=== PATIENT | male | born 1960 | race Two or more races ===

== ENCOUNTER 2021-03-05 00:25 | Inpatient (IN) | payer MEDICAID, OTHER ==
[~2021-03-05] VITALS: Ht 165.1 cm; Wt 66.6 kg
[2021-03-05 02:04] LABS: Basophils # (auto) 0 10 ^3/uL (0-0.2); Basophils % (auto) 0.8 % (0.0-2.0); Eosinophils # (auto) 0.1 10 ^3/uL (0-0.8); Lymphocytes # (auto) 0.6 10 ^3/uL (0.4-5.4); Monocytes # (auto) 0.5 10 ^3/uL (0-1.3); Neutrophils # (auto) 3.9 10 ^3/uL (1.6-8.6); Red Cell Distribution Width 14.1 % (11.8-14.3); White Blood Cell 5.2 10^3/uL (4.4-10.8)
[2021-03-05 02:05] LABS: Eosinophils % (auto) 2.7 % (0.0-7.0); Hematocrit 23.1 % (41.0-53.0); Hemoglobin 7.8 g/dL (13.5-17.5); Lymphocytes % (auto) 12.1 % (10.0-50.0); Mean Corpuscular Hemoglobin 32.8 pg (28.0-32.0); Mean Corpuscular Hgb Conc. 33.6 g/dL (32.0-36.0); Mean Corpuscular Volume 97.5 fL (80.0-100.0); Monocytes % (auto) 9.9 % (0.0-12.0); Neutrophils % (auto) 74.5 % (37.0-80.0); Red Blood Cells 2.37 10^6/uL (4.5-5.90)
[2021-03-05 03:02] LABS: Albumin 3.6 g/dL (3.4-5.0); BUN/Creatinine Ratio 5.8; Calcium 8.2 mg/dL (8.5-10.1); Potassium 4.3 mmol/L (3.5-5.1)
[2021-03-05 03:05] LABS: Bilirubin, Total 0.5 mg/dL (0.2-1.0); Total Protein 7.3 g/dL (6.4-8.2)
[2021-03-05] MEDS ORDERED: hydrALAZINE HCL 10 MG TAB PO ONE (05:15)
[2021-03-05] MEDS ORDERED: DEXTROSE 50% SYRINGE 50 ML IV ONE (06:05)
[2021-03-05] MEDS ORDERED: D5W 5% 1,000 ML IV ONE (06:15)
[2021-03-05] MEDS ORDERED: DEXTROSE (50%) 50ML SYRG IV ONE ×3 (06:15→07:00)
[2021-03-05] MEDS ORDERED: ACCU-CHEK COMFORT CURVE STRIP VI ONE (06:45)
[2021-03-05] MEDS ORDERED: MORPHINE SULF INJ 2 MG/ML SYRINGE 1ML IV PRN (07:00)
[2021-03-05] MEDS ORDERED: HYDROcodone-ACET 5/325MG TAB PO PRN (07:00)
[2021-03-05] MEDS ORDERED: hydrALAZINE HCL 20 MG/ML VL IV PRN (07:00)
[2021-03-05] MEDS ORDERED: ONDANSETRON HCL 4 MG/2 ML VIAL IV PRN (07:00)
[2021-03-05] MEDS ORDERED: ACETAMINOPHEN 325 MG TAB PO PRN (07:00)
[2021-03-05] MEDS ORDERED: DOCUSATE SOD 100 MG CAP PO PRN (07:00)
[2021-03-05] MEDS ORDERED: NITROGLYCERIN 0.4 MG SL TAB SL PRN (07:00)
[2021-03-05] MEDS ORDERED: DEXTROSE (50%) 50ML SYRG IV PRN (07:00)
[2021-03-05] MEDS: ACCU-CHEK COMFORT CURVE STRIP VI SCH ×4 (07:00→23:08)
[2021-03-05] MEDS: InsuLIN REG 1unit/0.01ml Soln (100units/ml) SC SCH ×4 (07:00→22:00)
[2021-03-05] MEDS: SEVELAMER 800 MG TAB PO SCH ×3 (08:11→18:00)
[2021-03-05 08:36] LABS: Basophils # (auto) 0 10 ^3/uL (0-0.2); Basophils % (auto) 0.9 % (0.0-2.0); Eosinophils # (auto) 0.1 10 ^3/uL (0-0.8); Hemoglobin 8.2 g/dL (13.5-17.5); Lymphocytes # (auto) 0.6 10 ^3/uL (0.4-5.4); Monocytes # (auto) 0.4 10 ^3/uL (0-1.3); Monocytes % (auto) 8.3 % (0.0-12.0); Neutrophils # (auto) 3.6 10 ^3/uL (1.6-8.6)
[2021-03-05 08:38] LABS: Hematocrit 24.7 % (41.0-53.0); Lymphocytes % (auto) 13.4 % (10.0-50.0); Mean Corpuscular Hemoglobin 32.6 pg (28.0-32.0); Mean Corpuscular Hgb Conc. 33.3 g/dL (32.0-36.0); Mean Corpuscular Volume 97.9 fL (80.0-100.0); Neutrophils % (auto) 75.4 % (37.0-80.0); Red Blood Cells 2.53 10^6/uL (4.5-5.90); Red Cell Distribution Width 14.2 % (11.8-14.3); White Blood Cell 4.8 10^3/uL (4.4-10.8)
[2021-03-05 09:00] LABS: Albumin 3.1 g/dL (3.4-5.0); Potassium 5.1 mmol/L (3.5-5.1)
[2021-03-05 09:05] LABS: BUN/Creatinine Ratio 6.2; Bilirubin, Total 0.5 mg/dL (0.2-1.0); Total Protein 7.2 g/dL (6.4-8.2)
[2021-03-05] MEDS ORDERED: B-COTAB10 PO (10:30)
[2021-03-05] MEDS ORDERED: SIMV-13 PO (10:30)
[2021-03-05] MEDS ORDERED: SEVE800T PO (10:30)
[2021-03-05] MEDS ORDERED: INSU70IN3 SC (10:30)
[2021-03-05] MEDS ORDERED: AMLO-489 PO (10:30)
[2021-03-05] MEDS: ZINC SULFATE 220mg CAP or TAB PO SCH (10:31)
[2021-03-05] MEDS: amLODIPine BESYLATE 5 MG TAB PO SCH (10:32)
[2021-03-05] MEDS: ASCORBIC ACID 500 MG TAB PO SCH ×2 (10:33→23:08)
[2021-03-05] MEDS: B-COMPLEX W/ C & FOLIC ACID(NEPHROVITE TAB) PO SCH (11:03)
[2021-03-05] MEDS: SODIUM CHLOR 0.9% PF (SALINE LOCK) 10ML VIAL/SYR IV SCH ×2 (14:20→23:08)
[2021-03-05 22:20] VITALS: BP 132/69
[2021-03-06 05:00] VITALS: BP 147/80
[2021-03-06] MEDS: SODIUM CHLOR 0.9% PF (SALINE LOCK) 10ML VIAL/SYR IV SCH ×3 (05:43→21:24)
[2021-03-06 05:50] LABS: Basophils # (auto) 0 10 ^3/uL (0-0.2); Eosinophils # (auto) 0.2 10 ^3/uL (0-0.8); Hemoglobin 7.8 g/dL (13.5-17.5); Monocytes # (auto) 0.4 10 ^3/uL (0-1.3); Red Cell Distribution Width 13.9 % (11.8-14.3)
[2021-03-06 05:51] LABS: BUN/Creatinine Ratio 6.1; Calcium 7.3 mg/dL (8.5-10.1); Eosinophils % (auto) 3.2 % (0.0-7.0); Hematocrit 22.8 % (41.0-53.0); Lymphocytes % (auto) 20.1 % (10.0-50.0); Mean Corpuscular Hemoglobin 33.3 pg (28.0-32.0); Mean Corpuscular Hgb Conc. 34.3 g/dL (32.0-36.0); Mean Corpuscular Volume 96.9 fL (80.0-100.0); Monocytes % (auto) 8.5 % (0.0-12.0); Neutrophils # (auto) 3.4 10 ^3/uL (1.6-8.6); Neutrophils % (auto) 67.2 % (37.0-80.0); Red Blood Cells 2.35 10^6/uL (4.5-5.90)
[2021-03-06 06:11] LABS: Bilirubin, Total 0.4 mg/dL (0.2-1.0); Total Protein 6.2 g/dL (6.4-8.2)
[2021-03-06 06:39] LABS: Potassium 6.2 mmol/L (3.5-5.1)
[2021-03-06] MEDS: ACCU-CHEK COMFORT CURVE STRIP VI SCH ×4 (06:54→21:24)
[2021-03-06] MEDS: InsuLIN REG 1unit/0.01ml Soln (100units/ml) SC SCH ×4 (06:55→21:56)
[2021-03-06] MEDS: SEVELAMER 800 MG TAB PO SCH ×3 (08:00→17:27)
[2021-03-06 09:00] VITALS: BP 148/68
[2021-03-06] MEDS: ZINC SULFATE 220mg CAP or TAB PO SCH (09:10)
[2021-03-06] MEDS: ASCORBIC ACID 500 MG TAB PO SCH ×2 (09:10→21:24)
[2021-03-06] MEDS: amLODIPine BESYLATE 5 MG TAB PO SCH (09:10)
[2021-03-06] MEDS: B-COMPLEX W/ C & FOLIC ACID(NEPHROVITE TAB) PO SCH (09:10)
[2021-03-06] MEDS ORDERED: SODIUM ZIRCONIUM CYCL 10 GM PAK PO ONE (12:00)
[2021-03-06] MEDS ORDERED: SODIUM CHL 0.9% 1000 ML BAG XX ONE (12:30)
[2021-03-06 12:46] VITALS: BP 146/79
[2021-03-06 17:00] VITALS: BP_SYST 119; BP_SYST 137; BP_DIAS 63; BP_DIAS 64
[2021-03-06] MEDS ORDERED: EPOETIN ALFA-EPBX 10,000 UNIT/1ML VIAL SC ONE (21:00)
[2021-03-06 22:00] VITALS: BP 132/66
[2021-03-07 05:00] VITALS: BP 154/77
[2021-03-07 05:44] LABS: BUN/Creatinine Ratio 5.3; Calcium 7.2 mg/dL (8.5-10.1); Potassium 4.7 mmol/L (3.5-5.1)
[2021-03-07] MEDS: ACCU-CHEK COMFORT CURVE STRIP VI SCH (06:21)
[2021-03-07] MEDS: SODIUM CHLOR 0.9% PF (SALINE LOCK) 10ML VIAL/SYR IV SCH (06:21)
[2021-03-07] MEDS: InsuLIN REG 1unit/0.01ml Soln (100units/ml) SC SCH (06:26)
[2021-03-07 09:01] VITALS: BP 129/69
[2021-03-07] MEDS: ASCORBIC ACID 500 MG TAB PO SCH (10:19)
[2021-03-07] MEDS: ZINC SULFATE 220mg CAP or TAB PO SCH (10:19)
[2021-03-07] MEDS: SEVELAMER 800 MG TAB PO SCH (10:19)
[2021-03-07] MEDS: amLODIPine BESYLATE 5 MG TAB PO SCH (10:19)
[2021-03-07] MEDS: B-COMPLEX W/ C & FOLIC ACID(NEPHROVITE TAB) PO SCH (10:19)
[2021-03-07 12:02] VITALS: BP 129/69
[2021-03-07 13:00] VITALS: BP 155/75
== END 2021-03-07 13:00 | disposition home or self-care (01) | DRG 812 ==
LOC: EDBD 00:25 → ER 00:39 → TELE 06:59 → TELE-CENTR 22:20
PROVIDERS: ADMIT Nurse Practitioner Family; ATTEND Internal Medicine
PROC: 5A1D70Z Performance of Urinary Filtration, Intermittent, Less than 6 Hours Per Day (ICD-10-PCS; principal; 2021-03-06)
DX: T38.3X1A Poisoning by insulin and oral hypoglycemic [antidiabetic] drugs, accidental (unintentional), initial encounter (principal); G93.41 Metabolic encephalopathy; E11.22 Type 2 diabetes mellitus with diabetic chronic kidney disease; E11.649 Type 2 diabetes mellitus with hypoglycemia without coma; N18.6 End stage renal disease; Z20.822 Contact with and (suspected) exposure to COVID-19; D63.1 Anemia in chronic kidney disease; E78.5 Hyperlipidemia, unspecified; E87.5 Hyperkalemia; I12.0 Hypertensive chronic kidney disease with stage 5 chronic kidney disease or end stage renal disease; Z99.2 Dependence on renal dialysis; Z83.3 Family history of diabetes mellitus; Z79.899 Other long term (current) drug therapy; Y92.89 Other specified places as the place of occurrence of the external cause
CPT/HCPCS: 36415; 80048; 80053; 80061; 82962; 83036; 85025; 87426; 90935; 93005; 96374; G0378; J1642; J1815

== ENCOUNTER 2021-03-19 19:16 | Inpatient (IN) | payer MEDICAID ==
[~2021-03-19] VITALS: Ht 152.4 cm; Wt 71.5 kg
[~2021-03-19 19:16] MED LIST: AMLO-489 PO; B-COTAB10 PO; INSU70IN3 SC; SEVE800T PO; SIMV-13 PO
[2021-03-19 21:14] LABS: Basophils # (auto) 0.1 10 ^3/uL (0-0.2); Eosinophils # (auto) 0.2 10 ^3/uL (0-0.8); Hematocrit 28.2 % (41.0-53.0); Hemoglobin 9.3 g/dL (13.5-17.5); Lymphocytes # (auto) 0.8 10 ^3/uL (0.4-5.4); Lymphocytes % (auto) 14.7 % (10.0-50.0); Mean Corpuscular Hemoglobin 32.4 pg (28.0-32.0); Mean Corpuscular Hgb Conc. 32.8 g/dL (32.0-36.0); Mean Corpuscular Volume 98.7 fL (80.0-100.0); Monocytes # (auto) 0.4 10 ^3/uL (0-1.3); Monocytes % (auto) 7.1 % (0.0-12.0); Neutrophils # (auto) 3.9 10 ^3/uL (1.6-8.6); Neutrophils % (auto) 74.2 % (37.0-80.0); Nucleated Red Blood Cells % 0.1 %; Red Blood Cells 2.86 10^6/uL (4.5-5.90); Red Cell Distribution Width 13.8 % (11.8-14.3); White Blood Cell 5.3 10^3/uL (4.4-10.8)
[2021-03-19 21:32] LABS: Albumin 3.5 g/dL (3.4-5.0); Anion Gap 12 (5-15); BUN/Creatinine Ratio 6.1; Calcium 8.3 mg/dL (8.5-10.1); Carbon Dioxide 20 mmol/L (21-32); Chloride 106 mmol/L (98-107); GFR African American 5 mL/min; GFR Non-African American 4 mL/min; Glucose 67 mg/dL (74-106); Magnesium 3.5 mg/dL (1.6-2.6); Sodium 138 mmol/L (136-145)
[2021-03-19 21:38] LABS: Alanine Aminotransferase 61 U/L (16-61); Alkaline Phosphatase 109 U/L (45-117); Aspartate Aminotransferase 33 U/L (15-37); Bilirubin, Total 0.4 mg/dL (0.2-1.0); Total Protein 7.8 g/dL (6.4-8.2)
[2021-03-19 21:45] LABS: Potassium 6.2 mmol/L (3.5-5.1)
[2021-03-19 21:46] LABS: Blood Urea Nitrogen 86 mg/dL (7-18)
[2021-03-20] MEDS ORDERED: ACETAMINOPHEN 325 MG TAB PO PRN (00:45)
[2021-03-20] MEDS ORDERED: SODIUM BICARBONATE 8.4% INJ 50ML SYRINGE IV ONE (00:45)
[2021-03-20] MEDS ORDERED: DEXTROSE (50%) 50ML SYRG IV PRN (00:45)
[2021-03-20] MEDS ORDERED: HYDROcodone-ACET 5/325MG TAB PO PRN (00:45)
[2021-03-20] MEDS ORDERED: NITROGLYCERIN 0.4 MG SL TAB SL PRN (00:45)
[2021-03-20] MEDS ORDERED: DOCUSATE SOD 100 MG CAP PO PRN (00:45)
[2021-03-20] MEDS ORDERED: SODIUM ZIRCONIUM CYCL 10 GM PAK PO ONE (00:45)
[2021-03-20] MEDS ORDERED: MORPHINE SULFATE INJECTION 2 MG/ML SYRG IV PRN (00:45)
[2021-03-20] MEDS ORDERED: ONDANSETRON HCL 4 MG/2 ML VIAL IV PRN (00:45)
[2021-03-20] MEDS: InsuLIN REG 1unit/0.01ml Soln (100units/ml) SC SCH ×6 (04:00→23:50)
[2021-03-20] MEDS: ACCU-CHEK COMFORT CURVE STRIP VI SCH ×6 (04:00→23:51)
[2021-03-20] MEDS: SODIUM CHLOR 0.9% PF (SALINE LOCK) 10ML VIAL/SYR IV SCH ×3 (05:44→21:50)
[2021-03-20 05:57] LABS: Basophils # (auto) 0.1 10 ^3/uL (0-0.2); Basophils % (auto) 1.6 % (0.0-2.0); Eosinophils # (auto) 0.2 10 ^3/uL (0-0.8); Hemoglobin 8.1 g/dL (13.5-17.5); Monocytes # (auto) 0.3 10 ^3/uL (0-1.3); Neutrophils # (auto) 2.6 10 ^3/uL (1.6-8.6)
[2021-03-20 06:01] LABS: Eosinophils % (auto) 4.6 % (0.0-7.0); Hematocrit 23.6 % (41.0-53.0); Mean Corpuscular Hemoglobin 33.4 pg (28.0-32.0); Mean Corpuscular Hgb Conc. 34.5 g/dL (32.0-36.0); Mean Corpuscular Volume 96.9 fL (80.0-100.0); Monocytes % (auto) 6.8 % (0.0-12.0); Nucleated Red Blood Cells % 0.1 %; Red Blood Cells 2.44 10^6/uL (4.5-5.90); Red Cell Distribution Width 13.8 % (11.8-14.3); White Blood Cell 4.2 10^3/uL (4.4-10.8)
[2021-03-20 06:20] LABS: Albumin 2.9 g/dL (3.4-5.0); Calcium 7.9 mg/dL (8.5-10.1)
[2021-03-20 06:26] LABS: BUN/Creatinine Ratio 6.8; Bilirubin, Total 0.3 mg/dL (0.2-1.0); Magnesium 3.6 mg/dL (1.6-2.6); Total Protein 6.6 g/dL (6.4-8.2)
[2021-03-20 07:07] LABS: Potassium 7.2 mmol/L (3.5-5.1)
[2021-03-20] MEDS: SEVELAMER 800 MG TAB PO SCH ×3 (08:35→18:19)
[2021-03-20] MEDS: ZINC SULFATE 220mg CAP or TAB PO SCH (10:12)
[2021-03-20] MEDS: FAMOTIDINE (10MG/ML) 2ML VL IV SCH (10:12)
[2021-03-20] MEDS: ASCORBIC ACID 500 MG TAB PO SCH ×2 (10:13→21:51)
[2021-03-20] MEDS: B-COMPLEX W/ C & FOLIC ACID(NEPHROVITE TAB) PO SCH (10:13)
[2021-03-20] MEDS: HEPARIN SODIUM (PORCINE) 5000 UNITS/ML 1ML VIAL SC SCH ×2 (10:15→21:52)
[2021-03-20] MEDS ORDERED: SODIUM ZIRCONIUM CYCL 10 GM PAK PO STA (13:14)
[2021-03-20] MEDS ORDERED: SODIUM CHL 0.9% 1000 ML BAG XX ONE (13:30)
[2021-03-20] MEDS: hydrALAZINE HCL 20 MG/ML VL IV PRN (21:52)
[2021-03-21] VITALS (7 sets, daily range): BP systolic 149–195; BP diastolic 72–91
[2021-03-21] MEDS: ACCU-CHEK COMFORT CURVE STRIP VI SCH ×6 (04:00→23:23)
[2021-03-21] MEDS: InsuLIN REG 1unit/0.01ml Soln (100units/ml) SC SCH ×6 (04:00→23:27)
[2021-03-21 05:37] LABS: Basophils # (auto) 0.1 10 ^3/uL (0-0.2); Basophils % (auto) 1.6 % (0.0-2.0); Eosinophils # (auto) 0.2 10 ^3/uL (0-0.8); Hemoglobin 8.2 g/dL (13.5-17.5); Monocytes # (auto) 0.3 10 ^3/uL (0-1.3); Neutrophils # (auto) 2.1 10 ^3/uL (1.6-8.6)
[2021-03-21 05:38] LABS: Eosinophils % (auto) 5.7 % (0.0-7.0); Hematocrit 24.4 % (41.0-53.0); Lymphocytes # (auto) 1.1 10 ^3/uL (0.4-5.4); Lymphocytes % (auto) 28.9 % (10.0-50.0); Mean Corpuscular Hemoglobin 32.6 pg (28.0-32.0); Mean Corpuscular Hgb Conc. 33.6 g/dL (32.0-36.0); Mean Corpuscular Volume 96.8 fL (80.0-100.0); Monocytes % (auto) 7.7 % (0.0-12.0); Neutrophils % (auto) 56.1 % (37.0-80.0); Red Blood Cells 2.52 10^6/uL (4.5-5.90); Red Cell Distribution Width 14.1 % (11.8-14.3); White Blood Cell 3.8 10^3/uL (4.4-10.8)
[2021-03-21 05:48] LABS: Calcium 7.5 mg/dL (8.5-10.1)
[2021-03-21 05:54] LABS: Albumin 2.7 g/dL (3.4-5.0); BUN/Creatinine Ratio 5.8; Bilirubin, Total 0.4 mg/dL (0.2-1.0); Total Protein 6.5 g/dL (6.4-8.2)
[2021-03-21] MEDS: SODIUM CHLOR 0.9% PF (SALINE LOCK) 10ML VIAL/SYR IV SCH ×3 (06:17→20:59)
[2021-03-21 06:34] LABS: Potassium 5.8 mmol/L (3.5-5.1)
[2021-03-21] MEDS ORDERED: SODIUM CHL 0.9% 1000 ML BAG XX ONE (07:00)
[2021-03-21] MEDS: SEVELAMER 800 MG TAB PO SCH ×3 (08:35→18:44)
[2021-03-21] MEDS: ZINC SULFATE 220mg CAP or TAB PO SCH (08:36)
[2021-03-21] MEDS: ASCORBIC ACID 500 MG TAB PO SCH ×2 (08:37→20:59)
[2021-03-21] MEDS: B-COMPLEX W/ C & FOLIC ACID(NEPHROVITE TAB) PO SCH (08:37)
[2021-03-21] MEDS: HEPARIN SODIUM (PORCINE) 5000 UNITS/ML 1ML VIAL SC SCH ×2 (09:53→23:23)
[2021-03-21] MEDS: NIFEdipine ER 30 MG TAB PO SCH (09:54)
[2021-03-21] MEDS ORDERED: amLODIPine BESYLATE 5 MG TAB PO SCH (10:00)
[2021-03-21] MEDS ORDERED: SODIUM ZIRCONIUM CYCL 10 GM PAK PO ONE (14:45)
[2021-03-21] MEDS ORDERED: EPOETIN ALFA-EPBX 4,000 UNIT/ML VIAL SC ONE (21:00)
[2021-03-21] MEDS: hydrALAZINE HCL 20 MG/ML VL IV PRN (21:09)
[2021-03-21] MEDS: SODIUM ZIRCONIUM CYCL 10 GM PAK PO SCH (23:23)
[2021-03-22] MEDS: ACCU-CHEK COMFORT CURVE STRIP VI SCH ×5 (04:00→20:00)
[2021-03-22] MEDS: InsuLIN REG 1unit/0.01ml Soln (100units/ml) SC SCH ×5 (04:00→20:59)
[2021-03-22 05:00] VITALS: BP 145/67
[2021-03-22] MEDS: SODIUM CHLOR 0.9% PF (SALINE LOCK) 10ML VIAL/SYR IV SCH ×3 (06:00→22:56)
[2021-03-22] MEDS: SODIUM ZIRCONIUM CYCL 10 GM PAK PO SCH ×2 (06:00→14:00)
[2021-03-22 06:24] LABS: Hemoglobin 8.1 g/dL (13.5-17.5)
[2021-03-22 06:27] LABS: Hematocrit 24.2 % (41.0-53.0)
[2021-03-22 06:34] LABS: Calcium 7.4 mg/dL (8.5-10.1)
[2021-03-22 06:39] LABS: BUN/Creatinine Ratio 6.1
[2021-03-22] MEDS: SEVELAMER 800 MG TAB PO SCH ×3 (08:11→17:41)
[2021-03-22 08:40] LABS: Potassium 6.2 mmol/L (3.5-5.1)
[2021-03-22 09:00] VITALS: BP 158/71
[2021-03-22] MEDS: ASCORBIC ACID 500 MG TAB PO SCH ×2 (10:00→22:55)
[2021-03-22] MEDS: B-COMPLEX W/ C & FOLIC ACID(NEPHROVITE TAB) PO SCH (10:00)
[2021-03-22] MEDS: ZINC SULFATE 220mg CAP or TAB PO SCH (10:00)
[2021-03-22] MEDS: HEPARIN SODIUM (PORCINE) 5000 UNITS/ML 1ML VIAL SC SCH ×2 (10:00→22:56)
[2021-03-22] MEDS: FAMOTIDINE (10MG/ML) 2ML VL IV SCH (10:00)
[2021-03-22] MEDS: NIFEdipine ER 30 MG TAB PO SCH (10:00)
[2021-03-22 12:41] VITALS: BP 113/63
[2021-03-22 17:00] VITALS: BP 170/76
[2021-03-22] MEDS: hydrALAZINE HCL 20 MG/ML VL IV PRN (18:06)
[2021-03-22 22:00] VITALS: BP 166/88
[2021-03-23] MEDS: InsuLIN REG 1unit/0.01ml Soln (100units/ml) SC SCH ×6 (00:49→23:08)
[2021-03-23] MEDS: ACCU-CHEK COMFORT CURVE STRIP VI SCH ×6 (04:00→22:00)
[2021-03-23 05:00] VITALS: BP 162/75
[2021-03-23] MEDS: SODIUM CHLOR 0.9% PF (SALINE LOCK) 10ML VIAL/SYR IV SCH ×3 (05:36→22:41)
[2021-03-23] MEDS: hydrALAZINE HCL 20 MG/ML VL IV PRN (05:51)
[2021-03-23 06:32] LABS: BUN/Creatinine Ratio 6.5; Calcium 7.8 mg/dL (8.5-10.1); Potassium 4.7 mmol/L (3.5-5.1)
[2021-03-23] MEDS: SEVELAMER 800 MG TAB PO SCH ×3 (08:05→18:16)
[2021-03-23 09:00] VITALS: BP 129/59
[2021-03-23] MEDS: B-COMPLEX W/ C & FOLIC ACID(NEPHROVITE TAB) PO SCH (09:55)
[2021-03-23] MEDS: ASCORBIC ACID 500 MG TAB PO SCH ×2 (09:55→22:41)
[2021-03-23] MEDS: ZINC SULFATE 220mg CAP or TAB PO SCH (09:56)
[2021-03-23] MEDS: HEPARIN SODIUM (PORCINE) 5000 UNITS/ML 1ML VIAL SC SCH ×2 (09:59→22:40)
[2021-03-23] MEDS: NIFEdipine ER 30 MG TAB PO SCH (10:09)
[2021-03-23 13:00] VITALS: BP 123/52
[2021-03-23] MEDS ORDERED: DEXTROSE (50%) 50ML SYRG IV PRN ×3 (13:00→16:00)
[2021-03-23] MEDS ORDERED: InsuLIN REG 1unit/0.01ml Soln (100units/ml) SC SCH (16:00)
[2021-03-23 17:00] VITALS: BP 98/54
[2021-03-23 17:07] LABS: Hematocrit 25.3 % (41.0-53.0); Hemoglobin 8.4 g/dL (13.5-17.5)
[2021-03-23 17:26] LABS: BUN/Creatinine Ratio 6.7; Calcium 7.7 mg/dL (8.5-10.1); Potassium 4.9 mmol/L (3.5-5.1)
[2021-03-23 20:00] VITALS: BP 124/56
[2021-03-23 22:00] VITALS: BP 124/56
[2021-03-24 05:00] VITALS: BP 125/68
[2021-03-24] MEDS: SODIUM CHLOR 0.9% PF (SALINE LOCK) 10ML VIAL/SYR IV SCH (06:00)
[2021-03-24] MEDS: ACCU-CHEK COMFORT CURVE STRIP VI SCH ×3 (06:44→17:02)
[2021-03-24] MEDS: InsuLIN REG 1unit/0.01ml Soln (100units/ml) SC SCH ×3 (06:50→17:00)
[2021-03-24] MEDS: SEVELAMER 800 MG TAB PO SCH ×2 (08:24→12:14)
[2021-03-24 09:00] VITALS: BP 131/62
[2021-03-24] MEDS: FAMOTIDINE (10MG/ML) 2ML VL IV SCH (10:14)
[2021-03-24] MEDS: ZINC SULFATE 220mg CAP or TAB PO SCH (10:15)
[2021-03-24] MEDS: B-COMPLEX W/ C & FOLIC ACID(NEPHROVITE TAB) PO SCH (10:15)
[2021-03-24] MEDS: NIFEdipine ER 30 MG TAB PO SCH (10:17)
[2021-03-24] MEDS: ASCORBIC ACID 500 MG TAB PO SCH (10:17)
[2021-03-24] MEDS: HEPARIN SODIUM (PORCINE) 5000 UNITS/ML 1ML VIAL SC SCH (10:27)
[2021-03-24 12:51] VITALS: BP 148/47
[2021-03-24 16:32] VITALS: BP 131/62
[2021-03-24 17:00] VITALS: BP 151/77
[2021-03-25] MEDS ORDERED: amLODIPine BESYLATE 5 MG TAB PO SCH (10:00)
== END 2021-03-24 17:13 | disposition home or self-care (01) | DRG 420 ==
LOC: EDUNIT# 19:16 → EDBD 19:16 → ER 19:22 → TELE 03-20 00:33 → TELE-WESTW 03-20 21:11
PROVIDERS: ADMIT Nurse Practitioner Family; ATTEND Internal Medicine
PROC: 5A1D70Z Performance of Urinary Filtration, Intermittent, Less than 6 Hours Per Day (ICD-10-PCS; principal; 2021-03-20)
PROC: 5A1D70Z Performance of Urinary Filtration, Intermittent, Less than 6 Hours Per Day (ICD-10-PCS; 2021-03-22)
DX: E10.649 Type 1 diabetes mellitus with hypoglycemia without coma (principal); G92 Toxic encephalopathy; I12.0 Hypertensive chronic kidney disease with stage 5 chronic kidney disease or end stage renal disease; E44.0 Moderate protein-calorie malnutrition; N18.6 End stage renal disease; D63.8 Anemia in other chronic diseases classified elsewhere; E10.22 Type 1 diabetes mellitus with diabetic chronic kidney disease; E83.42 Hypomagnesemia; E87.5 Hyperkalemia; E78.5 Hyperlipidemia, unspecified; Z20.822 Contact with and (suspected) exposure to COVID-19; M89.8X9 Other specified disorders of bone, unspecified site; N25.81 Secondary hyperparathyroidism of renal origin; Z68.28 Body mass index [BMI] 28.0-28.9, adult; Z79.4 Long term (current) use of insulin; Z83.3 Family history of diabetes mellitus; Z91.19 Patient's noncompliance with other medical treatment and regimen; Z99.2 Dependence on renal dialysis
CPT/HCPCS: 36415; 71045; 80048; 80053; 82962; 83735; 83880; 84132; 84484; 85014; 85018; 85025; 87081; 87426; 90935; 93005; 93306; 99291; G0378; J1815; J3490

== ENCOUNTER 2021-05-06 22:38 | Inpatient (IN) | payer MEDICAID ==
[~2021-05-06] VITALS: Ht 165.1 cm; Wt 72.1 kg
[2021-05-06] MEDS ORDERED: LORazepam 2MG/ML-1ML VIAL ONE (23:20)
[2021-05-06] MEDS ORDERED: DEXTROSE 50% SYRINGE 50 ML IV ONE (23:26)
[2021-05-06] MEDS ORDERED: LORazepam 2MG/ML-1ML VIAL IV ONE (23:30)
[2021-05-06] MEDS ORDERED: DEXTROSE (50%) 50ML SYRG IV ONE (23:30)
[2021-05-06 23:50] LABS: Basophils # (auto) 0.1 10 ^3/uL (0-0.2); Basophils % (auto) 1.3 % (0.0-2.0); Eosinophils # (auto) 0.2 10 ^3/uL (0-0.8); Eosinophils % (auto) 4.5 % (0.0-7.0); Hematocrit 27.2 % (41.0-53.0); Hemoglobin 8.7 g/dL (13.5-17.5); Lymphocytes % (auto) 21.7 % (10.0-50.0); Mean Corpuscular Hemoglobin 31.4 pg (28.0-32.0); Mean Corpuscular Hgb Conc. 31.9 g/dL (32.0-36.0); Mean Corpuscular Volume 98.5 fL (80.0-100.0); Monocytes # (auto) 0.4 10 ^3/uL (0-1.3); Monocytes % (auto) 8.8 % (0.0-12.0); Neutrophils % (auto) 63.7 % (37.0-80.0); Nucleated Red Blood Cells % 0.1 %; Red Blood Cells 2.76 10^6/uL (4.5-5.90); Red Cell Distribution Width 14.3 % (11.8-14.3); White Blood Cell 4.7 10^3/uL (4.4-10.8)
[2021-05-07 00:10] LABS: Albumin 3.4 g/dL (3.4-5.0); BUN/Creatinine Ratio 5.3; Calcium 7.6 mg/dL (8.5-10.1); Potassium 4.6 mmol/L (3.5-5.1)
[2021-05-07 00:12] LABS: Bilirubin, Total 0.3 mg/dL (0.2-1.0); Total Protein 7.6 g/dL (6.4-8.2)
[2021-05-07] MEDS ORDERED: ONDANSETRON HCL 4 MG/2 ML VIAL IV PRN (05:00)
[2021-05-07] MEDS ORDERED: ACETAMINOPHEN 325 MG TAB PO PRN (05:00)
[2021-05-07] MEDS ORDERED: NITROGLYCERIN 0.4 MG SL TAB SL PRN (05:00)
[2021-05-07] MEDS ORDERED: MORPHINE SULFATE INJECTION 2 MG/ML SYRG IV PRN (05:00)
[2021-05-07] MEDS ORDERED: DEXTROSE (50%) 50ML SYRG IV PRN (05:00)
[2021-05-07] MEDS ORDERED: LORazepam 2MG/ML-1ML VIAL IV PRN (05:00)
[2021-05-07] MEDS ORDERED: ACCU-CHEK COMFORT CURVE STRIP VI SCH (06:00)
[2021-05-07] MEDS ORDERED: InsuLIN REG 1unit/0.01ml Soln (100units/ml) SC SCH ×2 (06:00→10:00)
[2021-05-07] MEDS: SEVELAMER 800 MG TAB PO SCH ×3 (08:00→17:58)
[2021-05-07] MEDS: DEXTROSE 10% 1,000 ML IV SCH (08:28)
[2021-05-07] MEDS ORDERED: amLODIPine BESYLATE 5 MG TAB PO SCH (10:00)
[2021-05-07] MEDS: ACCU-CHEK COMFORT CURVE STRIP VI SCH ×4 (10:36→22:52)
[2021-05-07] MEDS: PANTOPRAZOLE 40 MG TAB PO SCH (12:00)
[2021-05-07] MEDS ORDERED: amLODIPine BESYLATE 5 MG TAB PO ONE (13:30)
[2021-05-07] MEDS: hydrALAZINE HCL 20 MG/ML VL IV PRN (14:30)
[2021-05-07] MEDS: InsuLIN REG 1unit/0.01ml Soln (100units/ml) SC SCH ×3 (14:40→22:00)
[2021-05-07] MEDS ORDERED: ATORVASTATIN 20 MG TAB PO SCH (22:00)
[2021-05-07 22:15] VITALS: BP 152/78
[2021-05-08] MEDS: DEXTROSE 10% 1,000 ML IV SCH ×2 (00:34→13:48)
[2021-05-08] MEDS: InsuLIN REG 1unit/0.01ml Soln (100units/ml) SC SCH ×5 (01:52→17:49)
[2021-05-08] MEDS: ACCU-CHEK COMFORT CURVE STRIP VI SCH ×5 (01:53→17:49)
[2021-05-08 05:00] VITALS: BP 173/72
[2021-05-08 05:34] LABS: Eosinophils # (auto) 0.3 10 ^3/uL (0-0.8); Hemoglobin 8.4 g/dL (13.5-17.5); Monocytes # (auto) 0.4 10 ^3/uL (0-1.3); Neutrophils # (auto) 3.1 10 ^3/uL (1.6-8.6); White Blood Cell 4.9 10^3/uL (4.4-10.8)
[2021-05-08 05:36] LABS: Basophils # (auto) 0.1 10 ^3/uL (0-0.2); Basophils % (auto) 1.1 % (0.0-2.0); Eosinophils % (auto) 6.1 % (0.0-7.0); Hematocrit 24.8 % (41.0-53.0); Lymphocytes % (auto) 20.1 % (10.0-50.0); Mean Corpuscular Hemoglobin 32.6 pg (28.0-32.0); Mean Corpuscular Hgb Conc. 33.9 g/dL (32.0-36.0); Mean Corpuscular Volume 96.1 fL (80.0-100.0); Monocytes % (auto) 8.6 % (0.0-12.0); Neutrophils % (auto) 64.1 % (37.0-80.0); Red Blood Cells 2.58 10^6/uL (4.5-5.90)
[2021-05-08] MEDS: hydrALAZINE HCL 20 MG/ML VL IV PRN (05:54)
[2021-05-08 06:08] LABS: BUN/Creatinine Ratio 6.3; Bilirubin, Total 0.4 mg/dL (0.2-1.0); Calcium 7.6 mg/dL (8.5-10.1); Total Protein 6.7 g/dL (6.4-8.2)
[2021-05-08 06:23] LABS: Potassium 6.6 mmol/L (3.5-5.1)
[2021-05-08] MEDS ORDERED: SODIUM CHL 0.9% 1000 ML BAG XX ONE (07:00)
[2021-05-08 09:00] VITALS: BP 137/75
[2021-05-08] MEDS: PANTOPRAZOLE 40 MG TAB PO SCH (09:47)
[2021-05-08] MEDS: SEVELAMER 800 MG TAB PO SCH ×3 (09:47→17:49)
[2021-05-08] MEDS ORDERED: amLODIPine BESYLATE 5 MG TAB PO SCH (10:00)
[2021-05-08 13:00] VITALS: BP 154/80
[2021-05-08 17:00] VITALS: BP 126/67
[2021-05-08] MEDS ORDERED: EPOETIN ALFA-EPBX 4,000 UNIT/ML VIAL SC ONE (21:00)
== END 2021-05-08 17:50 | disposition home health service (06) | DRG 420 ==
LOC: EDBD 22:38 → ER 22:39 → TELE 05-07 04:59 → TELE-WESTW 05-07 22:10
PROVIDERS: ADMIT Nurse Practitioner; ATTEND Internal Medicine
PROC: 5A1D70Z Performance of Urinary Filtration, Intermittent, Less than 6 Hours Per Day (ICD-10-PCS; principal; 2021-05-08)
DX: E11.649 Type 2 diabetes mellitus with hypoglycemia without coma (principal); G93.41 Metabolic encephalopathy; N18.6 End stage renal disease; D63.8 Anemia in other chronic diseases classified elsewhere; E11.21 Type 2 diabetes mellitus with diabetic nephropathy; E87.5 Hyperkalemia; G40.909 Epilepsy, unspecified, not intractable, without status epilepticus; E11.22 Type 2 diabetes mellitus with diabetic chronic kidney disease; E78.5 Hyperlipidemia, unspecified; Z20.822 Contact with and (suspected) exposure to COVID-19; Z99.2 Dependence on renal dialysis; Z83.3 Family history of diabetes mellitus
CPT/HCPCS: 36415; 70450; 70551; 71045; 80053; 82550; 82962; 83036; 83525; 83605; 83735; 85025; 87081; 87426; 90935; 96361; 96372; 96374; 96375; G0378; J1642; J1815

== ENCOUNTER 2021-06-06 20:05 | Emergency (ER) | payer MEDICAID ==
[~2021-06-06] VITALS: Ht 177.8 cm; Wt 81.6 kg
[2021-06-06] MEDS ORDERED: DEXTROSE 50% SYRINGE 50 ML IV ONE (20:10)
[2021-06-06] MEDS ORDERED: DEXTROSE (50%) 50ML SYRG IV ONE (20:30)
[2021-06-06 21:11] LABS: Basophils # (auto) 0.1 10 ^3/uL (0-0.2); Basophils % (auto) 1.3 % (0.0-2.0); Eosinophils # (auto) 0.2 10 ^3/uL (0-0.8); Eosinophils % (auto) 5.1 % (0.0-7.0); Hematocrit 27.4 % (41.0-53.0); Hemoglobin 8.9 g/dL (13.5-17.5); Lymphocytes # (auto) 1.2 10 ^3/uL (0.4-5.4); Lymphocytes % (auto) 27.2 % (10.0-50.0); Mean Corpuscular Hgb Conc. 32.5 g/dL (32.0-36.0); Mean Corpuscular Volume 98.5 fL (80.0-100.0); Monocytes # (auto) 0.4 10 ^3/uL (0-1.3); Monocytes % (auto) 10.1 % (0.0-12.0); Neutrophils # (auto) 2.4 10 ^3/uL (1.6-8.6); Neutrophils % (auto) 56.3 % (37.0-80.0); Nucleated Red Blood Cells % 0.1 %; Red Blood Cells 2.78 10^6/uL (4.5-5.90); Red Cell Distribution Width 14.7 % (11.8-14.3); White Blood Cell 4.2 10^3/uL (4.4-10.8)
[2021-06-06 21:35] LABS: Albumin 3.5 g/dL (3.4-5.0); BUN/Creatinine Ratio 5.5; Calcium 7.8 mg/dL (8.5-10.1); Potassium 4.7 mmol/L (3.5-5.1)
[2021-06-06 21:40] LABS: Bilirubin, Total 0.4 mg/dL (0.2-1.0); Total Protein 7.4 g/dL (6.4-8.2)
[2021-06-07 03:55] VITALS: BP 198/76
== END 2021-06-07 03:57 | disposition home or self-care (01) ==
LOC: EDBD 20:05 → ER 20:08
DX: E11.649 Type 2 diabetes mellitus with hypoglycemia without coma (principal); I12.0 Hypertensive chronic kidney disease with stage 5 chronic kidney disease or end stage renal disease; E11.22 Type 2 diabetes mellitus with diabetic chronic kidney disease; N18.6 End stage renal disease; E78.5 Hyperlipidemia, unspecified; Z99.2 Dependence on renal dialysis; Z79.4 Long term (current) use of insulin; Z79.899 Other long term (current) drug therapy
CPT/HCPCS: 36415; 80053; 85025; 93005; 96374; 99284; J7042

== ENCOUNTER 2021-06-29 19:07 | Emergency (ER) | payer MEDICAID ==
[~2021-06-29] VITALS: Ht 170.2 cm; Wt 74.8 kg
[2021-06-29] MEDS ORDERED: D5W/SOD CHL 0.45% 1,000 ML IV ONE (19:30)
[2021-06-29 21:15] VITALS: BP 145/74
== END 2021-06-29 21:32 | disposition left against medical advice (07) ==
LOC: EDBD 19:07 → ER 19:07
DX: E11.649 Type 2 diabetes mellitus with hypoglycemia without coma (principal); E11.22 Type 2 diabetes mellitus with diabetic chronic kidney disease; I12.0 Hypertensive chronic kidney disease with stage 5 chronic kidney disease or end stage renal disease; N18.6 End stage renal disease; E78.5 Hyperlipidemia, unspecified
CPT/HCPCS: 70450; 82962; 93005; 96360

== ENCOUNTER 2021-07-02 09:20 | Emergency (ER) | payer MEDICAID ==
[~2021-07-02] VITALS: Ht 167.6 cm; Wt 92.1 kg
[2021-07-02] MEDS ORDERED: SUCCINYLCHOLINE CHLORIDE 20 MG/ML 10ML VIAL IV ONE (09:45)
[2021-07-02] MEDS ORDERED: ETOMIDATE (2MG/ML) 20ML VIAL IV ONE (09:45)
[2021-07-02] MEDS ORDERED: NOREPINEPHRINE 8 MG/250ML KIT 250 ML IV SCH (09:45)
[2021-07-02] MEDS ORDERED: MIDAZOLAM DRIP 50 mg/50mL 50 ML IV ONE (09:52)
[2021-07-02] MEDS ORDERED: MIDAZOLAM DRIP 50 mg/50mL 50 ML IV SCH (10:00)
[2021-07-02] MEDS ORDERED: InsuLIN REG 1unit/0.01ml Soln (100units/ml) IV ONE (10:00)
[2021-07-02] MEDS ORDERED: SODIUM CHLORIDE 0.9% 1,000 ML IV ONE ×2 (10:00)
[2021-07-02 10:09] LABS: Basophils # (auto) 0 10 ^3/uL (0-0.2); Basophils % (auto) 0.5 % (0.0-2.0); Eosinophils # (auto) 0 10 ^3/uL (0-0.8); Hematocrit 35.5 % (41.0-53.0); Hemoglobin 11.1 g/dL (13.5-17.5); Lymphocytes # (auto) 0.2 10 ^3/uL (0.4-5.4); Lymphocytes % (auto) 4.8 % (10.0-50.0); Mean Corpuscular Hemoglobin 31.6 pg (28.0-32.0); Mean Corpuscular Hgb Conc. 31.4 g/dL (32.0-36.0); Mean Corpuscular Volume 100.8 fL (80.0-100.0); Monocytes # (auto) 0.1 10 ^3/uL (0-1.3); Monocytes % (auto) 2.6 % (0.0-12.0); Neutrophils # (auto) 4.8 10 ^3/uL (1.6-8.6); Neutrophils % (auto) 92.1 % (37.0-80.0); Nucleated Red Blood Cells % 0.1 %; Red Blood Cells 3.52 10^6/uL (4.5-5.90); Red Cell Distribution Width 15.3 % (11.8-14.3); White Blood Cell 5.2 10^3/uL (4.4-10.8)
[2021-07-02 10:26] LABS: Albumin 3.9 g/dL (3.4-5.0); Anion Gap 22 (5-15); Calcium 7.5 mg/dL (8.5-10.1); Carbon Dioxide 17 mmol/L (21-32); Chloride 93 mmol/L (98-107); Sodium 132 mmol/L (136-145)
[2021-07-02 10:27] LABS: Lactic Acid w/Reflex 2.6 mmol/L (0.4-2.0)
[2021-07-02] MEDS ORDERED: PROPOFOL 100 ML IV ONE (10:34)
[2021-07-02 10:36] LABS: Alanine Aminotransferase 89 U/L (16-61); Alkaline Phosphatase 155 U/L (45-117); Aspartate Aminotransferase 61 U/L (15-37); BUN/Creatinine Ratio 8.9; Bilirubin, Total 0.6 mg/dL (0.2-1.0); Blood Alcohol < 3.0 mg/dL (0-5); GFR African American 5 mL/min; GFR Non-African American 5 mL/min; Total Protein 7.9 g/dL (6.4-8.2)
[2021-07-02] MEDS ORDERED: PROPOFOL 100 ML IV SCH (10:45)
[2021-07-02 10:47] LABS: INR 1.07 (0.9-1.15)
[2021-07-02 10:54] LABS: Potassium 5.8 mmol/L (3.5-5.1)
[2021-07-02 10:55] LABS: Glucose 622 mg/dL (74-106)
[2021-07-02 11:00] LABS: Blood Urea Nitrogen 108 mg/dL (7-18)
[2021-07-02] MEDS ORDERED: SODIUM ZIRCONIUM CYCL 10 GM PAK PO ONE (11:15)
[2021-07-02] MEDS ORDERED: CALCIUM GLUC 1,000mg/50ml-NS 50 ML IV ONE (11:15)
[2021-07-02] MEDS ORDERED: SODIUM BICARBONATE 8.4 % INJ 50ML VIAL IV ONE (11:15)
[2021-07-02 12:00] VITALS: BP 161/85
[2021-07-02] MEDS ORDERED: InsuLIN R (HUMAN) 100 UNITS in SODIUM CHL 0.9% 99 ML IV SCH (12:30)
[2021-07-02] MEDS ORDERED: DEXTROSE (50%) 50ML SYRG IV PRN (12:30)
[2021-07-02] MEDS ORDERED: levETIRAcetam 500 MG/5ML INJ IV ONE (12:31)
[2021-07-02] MEDS ORDERED: InsuLIN REG 1unit/0.01ml Soln (100units/ml) ONE (12:32)
[2021-07-02 12:48] VITALS: BP 162/78
[2021-07-02] MEDS ORDERED: ACCU-CHEK COMFORT CURVE STRIP VI SCH (13:30)
== END 2021-07-02 10:29 | disposition short-term general hospital (02) ==
LOC: ER 09:20 → EDBD 09:20 → ER 10:29
DX: S06.6X0A Traumatic subarachnoid hemorrhage without loss of consciousness, initial encounter (principal); G93.41 Metabolic encephalopathy; R41.82 Altered mental status, unspecified; I10 Essential (primary) hypertension; R51.9 Headache, unspecified; E11.22 Type 2 diabetes mellitus with diabetic chronic kidney disease; I12.0 Hypertensive chronic kidney disease with stage 5 chronic kidney disease or end stage renal disease; N18.6 End stage renal disease; E78.5 Hyperlipidemia, unspecified; R06.89 Other abnormalities of breathing; Z20.822 Contact with and (suspected) exposure to COVID-19; X58.XXXA Exposure to other specified factors, initial encounter; Y93.89 Activity, other specified; Y92.89 Other specified places as the place of occurrence of the external cause; Y99.8 Other external cause status
CPT/HCPCS: 31500; 36415; 36556; 36600; 70450; 71045; 74176; 80053; 80320; 82010; 82805; 82962; 83036; 83605; 83735; 83880; 84484; 85025; 85610; 85730; 87040; 87070; 87077; 87186; 87205; 87426; 93005; 96365; 96367; 96368; 96375; 99291; J0330; J0610; J1815; J1953; J2250; J2704; J7030; J7060; 94002